=== PATIENT | male | born 1995 | race Caucasian/White ===

== ENCOUNTER 2018-09-15 22:06 | Emergency (ER) | payer BC, MEDICAID ==
[~2018-09-15] VITALS: Ht 165.1 cm; Wt 68.0 kg
[2018-09-16] VITALS: BP 115/56
== END 2018-09-16 | disposition home or self-care (01) ==
LOC: ER 22:06
DX: K08.89 Other specified disorders of teeth and supporting structures (principal); F17.210 Nicotine dependence, cigarettes, uncomplicated
CPT/HCPCS: 99283